=== PATIENT | female | born 1950 | race Hispanic/Latino ===

== ENCOUNTER 2017-12-25 10:45 | Outpatient (CLI) | payer MEDICARE ==
--- NOTE | 2017-12-25 12:48 | XRay Report ---
CHEST TWO VIEWS: 12/25/17 11:43 CLINICAL: Chest wall pain. COMPARISON: 06/09/14 FINDINGS: Normal heart and pulmonary vasculature. The lungs are normally expanded and clear.Mild exaggerated thoracic kyphosis but no spine fracture identified. Mild thoracic spondylosis. No rib fracture or rib lesion identified. IMPRESSION: No acute cardiopulmonary process and no rib fracture identified.
--- NOTE | 2017-12-25 12:53 | XRay Report ---
CHEST WITH LEFT RIB DETAIL 2 VIEWS: 12/25/17 10:45:00 CLINICAL: Chest wall pain. FINDINGS: No rib fracture or rib lesion.The lungs are normally expanded and clear. No pneumothorax. Normal heart and pulmonary vasculature the lungs are clear. Normal soft tissues. IMPRESSION: Negative with no rib fracture identified.
== END 2017-12-25 10:46 | disposition home or self-care (01) ==
LOC: SPVIMAG 10:45
PROVIDERS: ATTEND Internal Medicine
DX: R07.89 Other chest pain (principal); I10 Essential (primary) hypertension; I48.91 Unspecified atrial fibrillation
CPT/HCPCS: 71046

== ENCOUNTER 2021-07-29 09:53 | Emergency (ER) | payer MEDICARE ==
--- NOTE | 2021-07-29 10:07 | Emergency Department Report ---
ED Altered Mental Status HPI - General Stated Complaint: TIA Time Seen by Provider: 07/29/21 09:59 - History of Present Illness Initial Comments: 71-year-old female with a history of several TIAs in the past brought in by EMS with possible TIA/altered mental status that occurred this AM. According to EMS patient son called for help. Unsure what this patient baseline mental status is at this point. Patient's is very tangential not following any commands at this point. History is very very limited to what the EMS accounted for. No other modifying or associated factors reported. MD Complaint: altered mental status - Related Data Home Medications Medication Instructions Recorded Confirmed Last Taken Flecainide [Tambocor] 50 mg PO Q12H 07/31/15 11/22/15 Unknown Metoprolol Xl [Metoprolol 12.5 mg PO QDAY 07/31/15 11/22/15 Unknown SUCCINATE ER TAB] Warfarin [Coumadin] 7.5 mg PO QDAY 07/31/15 11/22/15 Unknown Warfarin [Coumadin] 10 mg PO QDAY 07/31/15 11/22/15 Unknown amLODIPine 10 mg PO DAILY 07/31/15 11/22/15 Unknown lisinopriL [Zestril TAB] 40 mg PO QDAY 07/31/15 11/22/15 Unknown Previous Rx's Medication Instructions Recorded Last Taken Type Ondansetron [Zofran Odt] 4 mg PO Q8HR PRN #20 tab.rapdis 11/22/15 Unknown Rx Potassium Chloride [K-Dur] 20 meq PO QDAY #3 tablet 11/22/15 Unknown Rx diazePAM TAB [Valium] 5 mg PO BID PRN #20 tablet 11/22/15 Unknown Rx Allergies Allergy/AdvReac Type Severity Reaction Status Date / Time Penicillins Allergy Hives Verified 07/29/21 13:15 ED Review of Systems ROS: Stated complaint: TIA Other details as noted in HPI Comment: All other systems reviewed and negative Musculoskeletal: other (Altered mental status) ED Past Medical Hx - Past Medical History Hx Hypertension: Yes Additional medical history: A Fib - Surgical History Additional Surgical History: tubaligation, sinus surgery - Social History Smoking Status: Never Smoker Substance Use Type: None - Medications Home Medications: Home Medications Medication Instructions Recorded Confirmed Last Taken Type Flecainide [Tambocor] 50 mg PO Q12H 07/31/15 11/22/15 Unknown History Metoprolol Xl [Metoprolol 12.5 mg PO QDAY 07/31/15 11/22/15 Unknown History SUCCINATE ER TAB] Warfarin [Coumadin] 7.5 mg PO QDAY 07/31/15 11/22/15 Unknown History Warfarin [Coumadin] 10 mg PO QDAY 07/31/15 11/22/15 Unknown History amLODIPine 10 mg PO DAILY 07/31/15 11/22/15 Unknown History lisinopriL [Zestril TAB] 40 mg PO QDAY 07/31/15 11/22/15 Unknown History Ondansetron [Zofran Odt] 4 mg PO Q8HR PRN #20 tab.rapdis 11/22/15 Unknown Rx Potassium Chloride [K-Dur] 20 meq PO QDAY #3 tablet 11/22/15 Unknown Rx diazePAM TAB [Valium] 5 mg PO BID PRN #20 tablet 11/22/15 Unknown Rx ED Physical Exam - General Limitations: Altered Mental Status General appearance: alert, in no apparent distress - Head Head exam: Present: atraumatic, normal inspection - Eye Eye exam: Present: normal appearance Pupils: Present: normal accommodation - ENT ENT exam: Present: normal exam, normal orophraynx, mucous membranes moist - Neck Neck exam: Present: normal inspection. Absent: tenderness - Respiratory Respiratory exam: Present: normal lung sounds bilaterally. Absent: respiratory distress, accessory muscle use - Cardiovascular Cardiovascular Exam: Present: regular rate, normal rhythm - GI/Abdominal GI/Abdominal exam: Present: soft, normal bowel sounds. Absent: distended, tenderness - Extremities Exam Extremities exam: Present: normal inspection, normal capillary refill. Absent: tenderness, pedal edema, joint swelling - Back Exam Back exam: Absent: tenderness - Neurological Exam Neurological exam: Present: alert (but tangential ), altered - Psychiatric Psychiatric exam: Present: normal affect - Skin Skin exam: Present: warm, normal color - Assessment Assessment Interval: Baseline (Unable to obtain because patient is very confused/alterred) ED Course - Reevaluation(s) Reevaluation #1: 07/29/21 10:07 Patient is brought in with altered mental status/likely TIA unsure what these patient baseline mentation is at this point--differential diagnosis could include but not limited to, undiagnosed dementia, CVA, TIA, urinary tract infection, pneumonia or other infectious process, so as a result we will go ahead and check routine labs that include CBC, CMP, urinalysis to rule out any electrolyte or infectious process. We will also get a CT scan of the brain immediately to rule out any intracranial abnormality. Chest x-ray and cardiac enzyme with initial EKG will also be obtained for likely cardiopulmonary etiology Reevaluation #2: 07/29/21 15:01 Patient labs reviewed and noted to be within normal limits. Patient daughter called and told the bedside nurse that this patient symptoms currently is no different from her baseline. She mentioned that somebody get excited when the patient called the EMS. Currently still waiting for urinalysis to be sure that patient does not have any urinary tract infection that can lead to delirium or altered mental status. Patient will be signed out to Dr. Alcocer to follow-up on the urinalysis if negative patient can be safely discharged home. - Lab Data Result diagrams: 07/29/21 10:43 07/29/21 10:43 Lab Results 07/29/21 07/29/21 07/29/21 Range/Units 10:43 10:43 10:43 WBC 6.4 (4.5-11.0) K/mm3 RBC 4.93 (3.65-5.03) M/mm3 Hgb 12.8 (10.1-14.3) gm/dl Hct 40.3 (30.3-42.9) % MCV 82 (79-97) fl MCH 26 L (28-32) pg MCHC 32 (30-34) % RDW 21.7 H (13.2-15.2) % Plt Count 283 (140-440) K/mm3 Lymph % (Auto) 11.9 L (13.4-35.0) % [place] % (Auto) 6.7 (0.0-7.3) % Eos % (Auto) 0.4 (0.0-4.3) % Baso % (Auto) 0.6 (0.0-1.8) % Lymph # (Auto) 0.8 L (1.2-5.4) K/mm3 [place] # (Auto) 0.4 (0.0-0.8) K/mm3 Eos # (Auto) 0.0 (0.0-0.4) K/mm3 Baso # (Auto) 0.0 (0.0-0.1) K/mm3 Seg Neutrophils % 80.4 H (40.0-70.0) % Seg Neutrophils # 5.1 (1.8-7.7) K/mm3 PT (12.2-14.9) Sec. INR (0.87-1.13) APTT (24.2-36.6) Sec. Sodium 138 (137-145) mmol/L Potassium 3.8 (3.6-5.0) mmol/L Chloride 100.9 (98-107) mmol/L Carbon Dioxide 25 (22-30) mmol/L Anion Gap 16 mmol/L BUN 12 (7-17) mg/dL Creatinine 0.6 (0.6-1.2) mg/dL Estimated GFR > 60 ml/min BUN/Creatinine Ratio 20 % Glucose 113 H (65-100) mg/dL Calcium 9.3 (8.4-10.2) mg/dL Total Bilirubin 0.90 (0.1-1.2) mg/dL AST 17 (5-40) units/L ALT 21 (7-56) units/L Alkaline Phosphatase 80 (35-129) units/L Troponin T < 0.010 (0.00-0.029) ng/mL NT-Pro-B Natriuret Pep 312.9 (0-900) pg/mL Total Protein 7.0 (6.3-8.2) g/dL Albumin 4.0 (3.9-5) g/dL Albumin/Globulin Ratio 1.3 % TSH 0.896 (0.270-4.200) mlU/mL 07/29/21 Range/Units 10:43 WBC (4.5-11.0) K/mm3 RBC (3.65-5.03) M/mm3 Hgb (10.1-14.3) gm/dl Hct (30.3-42.9) % MCV (79-97) fl MCH (28-32) pg MCHC (30-34) % RDW (13.2-15.2) % Plt Count (140-440) K/mm3 Lymph % (Auto) (13.4-35.0) % [place] % (Auto) (0.0-7.3) % Eos % (Auto) (0.0-4.3) % Baso % (Auto) (0.0-1.8) % Lymph # (Auto) (1.2-5.4) K/mm3 [place] # (Auto) (0.0-0.8) K/mm3 Eos # (Auto) (0.0-0.4) K/mm3 Baso # (Auto) (0.0-0.1) K/mm3 Seg Neutrophils % (40.0-70.0) % Seg Neutrophils # (1.8-7.7) K/mm3 PT 14.3 (12.2-14.9) Sec. INR 1.00 (0.87-1.13) APTT 29.6 (24.2-36.6) Sec. Sodium (137-145) mmol/L Potassium (3.6-5.0) mmol/L Chloride (98-107) mmol/L Carbon Dioxide (22-30) mmol/L Anion Gap mmol/L BUN (7-17) mg/dL Creatinine (0.6-1.2) mg/dL Estimated GFR ml/min BUN/Creatinine Ratio % Glucose (65-100) mg/dL Calcium (8.4-10.2) mg/dL Total Bilirubin (0.1-1.2) mg/dL AST (5-40) units/L ALT (7-56) units/L Alkaline Phosphatase (35-129) units/L Troponin T (0.00-0.029) ng/mL NT-Pro-B Natriuret Pep (0-900) pg/mL Total Protein (6.3-8.2) g/dL Albumin (3.9-5) g/dL Albumin/Globulin Ratio % TSH (0.270-4.200) mlU/mL Critical care attestation.: If time is entered above; I have spent that time in minutes in the direct care of this critically ill patient, excluding procedure time. ED Disposition Clinical Impression: Altered mental status Qualifiers: Altered mental status type: unspecified Qualified Code(s): R41.82 - Altered mental status, unspecified Disposition: 30 STILL A PATIENT Is pt being admited?: No Does the pt Need Aspirin: No Condition: Stable Additional Instructions: Increase your daily fluids to help your hydration Call and schedule follow-up with your primary doctor in the next 3 to 5 days for progress Please do not hesitate to call or return to emergency room if your symptoms worsen Time of Disposition: 15:03 (Pt signed to Dr Alcocer while waiting for UA)
--- NOTE | 2021-07-29 10:49 | Cat Scan Report ---
CT head/brain wo con INDICATION / CLINICAL INFORMATION: 71 years Female; AMS/TIA. TECHNIQUE: Routine CT head without contrast. All CT scans at this location are performed using CT dos e reduction for ALARA by means of automated exposure control. COMPARISON: None. FINDINGS: BRAIN / INTRACRANIAL CONTENTS: The patient is status post left craniotomy with collection underlying the craniotomy flap which is likely on a post operative basis measuring 3 mm transversely at. There i s notable heterogeneous signal within the left temporal lobe and correlation be needed regarding resi dual underlying lesion. There is also prominent edema within the adjacent to cerebral segments partic ularly extending within the left parietal region. There is notable mass effect with sulcal effacement as well as 7 mm of midline shift toward the right. There is associated subfalcine herniation. There is notable white matter disease within the right cerebral hemisphere most consistent with micro vascular angiopathy. Is mild relative prominence of the right lateral ventricle this single exam and continued follow-up would be recommended to exclude developing hydrocephalus. There appear to be post op changes within the left cerebral hemisphere as noted above. Otherwise, there is no clear CT eviden ce of acute hemorrhage. ORBITS: No significant abnormality of visualized orbits. SINUSES / MASTOIDS: There is scattered opacification within the ethmoid air cells. There is mild to m oderate air-fluid level along the posterior right sphenoid sinus. CRANIOCERVICAL JUNCTION: No significant abnormality. ADDITIONAL FINDINGS: None. IMPRESSION: 1. There is left-sided craniotomy with extensive heterogeneous attenuation and edema involving the le ft cerebral hemisphere resulting in mass effect as detailed above; correlation be needed, particularl y regarding any recent outside exams. Signer Name: Mauro Camilo MD Signed: 07/29/2021 10:45 AM Workstation Name: [id number]
--- NOTE | 2021-07-29 11:05 | XRay Report ---
CHEST 1 VIEW 07/29/2021 10:42 AM INDICATION / CLINICAL INFORMATION: AMS. COMPARISON: 12/25/17 FINDINGS: SUPPORT DEVICES: None. HEART / MEDIASTINUM: No significant abnormality. LUNGS / PLEURA: No significant pulmonary or pleural abnormality. No pneumothorax. ADDITIONAL FINDINGS: No significant additional findings. IMPRESSION: 1. No acute findings. Signer Name: Zachery Gottlieb Jr, MD Signed: 07/29/2021 11:00 AM Workstation Name: [id number]
[2021-07-29 11:20] LABS: Basophils % (Auto) 0.6 % (0.0-1.8); Eosinophils % (Auto) 0.4 % (0.0-4.3); Hematocrit 40.3 % (30.3-42.9); Hemoglobin 12.8 gm/dl (10.1-14.3); Lymphocytes # (Auto) 0.8 K/mm3 (1.2-5.4); Lymphocytes % (Auto) 11.9 % (13.4-35.0); Mean Corpuscular HGB Conc 32 % (30-34); Mean Corpuscular Volume 82 fl (79-97); Monocytes # (Auto) 0.4 K/mm3 (0.0-0.8); Monocytes % (Auto) 6.7 % (0.0-7.3); Platelet Count 283 K/mm3 (140-440); Red Blood Count 4.93 M/mm3 (3.65-5.03)
[2021-07-29 11:30] LABS: Partial Thromboplastin Time 29.6 Sec. (24.2-36.6)
[2021-07-29 11:44] LABS: Alanine Aminotransferase 21 units/L (7-56); Blood Urea Nitrogen 12 mg/dL (7-17); Calcium 9.3 mg/dL (8.4-10.2); Hemolysis Index 5
[2021-07-29 11:47] LABS: Red Cell Distribution Width 21.7 % (13.2-15.2)
[2021-07-29] MEDS ORDERED: SODIUM CHLORIDE 0.9% 1000 ML 1,000 ML IV ONE ×2 (11:50→12:51)
[2021-07-29 11:56] LABS: BUN/Creatinine Ratio 20
[2021-07-29 17:40] LABS: Bilirubin,Urine NEG (Negative); Blood,Urine MOD (Negative); Color,Urine Straw (Yellow); Mucus,Urine FEW /HPF; Protein,Urine <15 mg/dL mg/dL (Negative); Urobilinogen,Urine < 2.0 mg/dL (<2.0)
[2021-07-29 17:49] LABS: Amphetamine Screen,Urine Negative; Benzodiazepines Screen,Urine Negative; Cannabinoid Screen,Urine Negative; Cocaine Screen,Urine Negative; Methadone Screen,Urine Negative; Opiate Screen,Urine Negative
--- NOTE | 2021-07-29 18:43 | History and Physical Report ---
History of Present Illness Chief complaint: Confusion and Agitation History of present illness: 71 YO Female with Glioblastoma Multiforme, Vascular Dementia with Behavioral Disturbance, Cerebral Atherosclerosis, Paroxysmal Atrial Fib on therapeutic anticoagulation with Coumadin, HTN presents ED for evaluation. Patient is confused with diminished cognition and significant agitation at the time my evaluation is unable to provide history. Patient history provided by EMS staff, ED staff, as well as the patient's son who was at bedside during exam for interview. Patient son states that the patient has experienced increasing confusion and agitation and progressive weakness over the past 3 weeks with persistent and worsening symptoms over the same timeframe. Son states that the patient is currently bedbound, nonambulatory and requires 6/6 assistance with activities of daily living. Patient is a palliative performance score 30%. Patient has experienced diminished oral intake and is unable to recognize family members. EMS was notified and upon arrival the patient was found to be in distress and subsequently transported to [facility] for further care and evaluation of the aforementioned symptoms. The patient was seen and evaluated in the emergency department. All lab and imaging studies reviewed. Patient found to have cerebral edema secondary to glioblastoma multiforme, severe agitation, and encephalopathy. Patient found to have poor prognosis. No reports of fever, chills, chest pain, palpitation, adductive cough, skin rash and recent contact, known exposure to COVID-19. No prior admission for review. All medication listed at time of admission has been reconciled. Advanced care planning conduc marvin in ED. Past History Past Medical History: atrial fib, hypertension Past Surgical History: Other (Tubal ligation, craniotomy) Social history: , lives with family Family history: hypertension Medications and Allergies Allergies Allergy/AdvReac Type Severity Reaction Status Date / Time Penicillins Allergy Hives Verified 07/29/21 13:15 Home Medications Medication Instructions Recorded Confirmed Last Taken Type Flecainide [Tambocor] 50 mg PO Q12H 07/31/15 11/22/15 Unknown History Metoprolol Xl [Metoprolol 12.5 mg PO QDAY 07/31/15 11/22/15 Unknown History SUCCINATE ER TAB] Warfarin [Coumadin] 7.5 mg PO QDAY 07/31/15 11/22/15 Unknown History Warfarin [Coumadin] 10 mg PO QDAY 07/31/15 11/22/15 Unknown History amLODIPine 10 mg PO DAILY 07/31/15 11/22/15 Unknown History lisinopriL [Zestril TAB] 40 mg PO QDAY 07/31/15 11/22/15 Unknown History Ondansetron [Zofran Odt] 4 mg PO Q8HR PRN #20 tab.rapdis 11/22/15 Unknown Rx Potassium Chloride [K-Dur] 20 meq PO QDAY #3 tablet 11/22/15 Unknown Rx diazePAM TAB [Valium] 5 mg PO BID PRN #20 tablet 11/22/15 Unknown Rx Review of Systems ROS unobtainable: due to mental status Exam - Constitutional General appearance: Present: severe distress - EENT Eyes: Present: PERRL ENT: hearing intact, clear oral mucosa, hearing decreased - Neck Neck: Present: supple, normal ROM - Respiratory Respiratory: bilateral: CTA - Cardiovascular Heart Sounds: Present: S1 & S2. Absent: rub, click - Extremities Extremities: pulses symmetrical, No edema Peripheral Pulses: within normal limits - Abdominal General gastrointestinal: Present: soft, non-tender, non-distended, normal bowel sounds Female genitourinary: Present: normal - Integumentary Integumentary: Present: clear, dry, clammy - Musculoskeletal Musculoskeletal: generalized weakness - Psychiatric Psychiatric: no appropriate mood/affect, no intact judgment & insight, no memory intact, no cooperative, agitated - Neurologic Neurologic: moves all extremities, no gait normal HEART Score - HEART Score Troponin: Troponin T < 0.010 ng/mL (0.00-0.029) 07/29/21 10:43 Results - Labs CBC & Chem 7: 07/29/21 10:43 07/29/21 10:43 Labs: Abnormal lab results 07/29/21 07/29/21 Range/Units 10:43 10:43 MCH 26 L (28-32) pg RDW 21.7 H (13.2-15.2) % Lymph % (Auto) 11.9 L (13.4-35.0) % Lymph # (Auto) 0.8 L (1.2-5.4) K/mm3 Seg Neutrophils % 80.4 H (40.0-70.0) % Glucose 113 H (65-100) mg/dL Assessment and Plan - Patient Problems (1) Glioblastoma multiforme Current Visit: Yes Status: Acute Plan to address problem: CT scan head, neuro check, seizure precaution, aspiration precaution, fall precautions, supportive care. Patient found to have poor prognosis. Patient prognosis discussed with the patient son who elects to have patient discharged home with home hospice care. Home hospice team notified. (2) Paroxysmal atrial fibrillation Current Visit: Yes Status: Acute Plan to address problem: Supportive care, patient unable to comply with therapeutic anticoagulation at this time. Risk benefits discussed. Patient family elects to discontinue therapeutic anticoagulation and initiate comfort care measures. (3) Vascular dementia with behavioral disturbance Current Visit: Yes Status: Acute Plan to address problem: Verbal prompting, verbal redirection, benzodiazepine therapy as clinically indicated. (4) Cerebral atherosclerosis Current Visit: Yes Status: Acute Plan to address problem: Risk factor reduction, supportive care. (5) Debility Current Visit: No Status: Acute Plan to address problem: Patient is currently bedbound, follow-up cautions, bed alarm. (6) Advance care planning Current Visit: Yes Status: Acute Plan to address problem: Disease education done, care plan discussed, diagnosis discussed, prognosis discussed, patient is full code at this time. Patient family informed of patient's poor prognosis. Patient family elects to initiate home hospice care. Home hospice care team notified. Patient family acknowledged understanding and agreement with care plan, +30 minutes. (7) Preventative health care Current Visit: Yes Status: Acute Plan to address problem: Patient family counseled regarding home safety, supportive care. Risk factor reduction. And end-of-life care. +30 minutes.
[2021-07-29] MEDS ORDERED: LORazepam 2 MG/ML VIAL IV ONE ×2 (18:55→21:04)
[2021-07-29] MEDS ORDERED: MORPHINE 2 MG/1 ML INJ IV ONE ×2 (18:55→21:04)
--- NOTE | 2021-07-29 20:01 | Procedure Note ---
Date of procedure: 07/29/21 Pre-op diagnosis: Glioblastoma multiforme Post-op diagnosis: same Procedure: Right femoral vein triple-lumen catheter placement under ultrasound guidance The patient was prepped and draped in the usual sterile fashion. A timeout was taken with the patient's nurse at bedside to verify the correct patient, the correct procedure, and correct operative site. Local anesthesia obtained with 1% lidocaine. The ultrasound was utilized to localize the right femoral vein without difficulty. The Seldinger technique was utilized under ultrasound guidance to access the right femoral vein with a seeker needle. A guidewire was then advanced via the seeker needle into the right femoral vein and the seeker needle subsequently removed. A scalpel was used to incise the skin at the insertion site. A dilator was then placed over the guidewire into the right f emoral vein without difficulty and subsequently removed. A preflush triple- lumen catheter was then advanced into the right femoral vein without difficulty. All 3 ports flush and draw with ease. The triple-lumen catheter was sutured in place with 30 silk suture. Estimated blood loss minimal. Complications none. Surgeon: MANAV CAVAZOS Estimated blood loss: minimal Pathology: none Condition: stable Disposition: same day
[2021-07-30] MEDS ORDERED: LORazepam 2 MG/ML VIAL IV ONE (04:45)
[2021-07-30] MEDS ORDERED: MORPHINE 2 MG/1 ML INJ IV ONE (05:00)
[2021-07-30] MEDS ORDERED: MORPHINE 4 MG/1 ML INJ IV ONE (08:00)
[2021-07-30 15:52] VITALS: BP 130/76
== END 2021-07-30 16:10 | disposition still patient (30) ==
LOC: ED 09:53
DX: R41.82 Altered mental status, unspecified (principal); I10 Essential (primary) hypertension; Z88.0 Allergy status to penicillin; Z79.899 Other long term (current) drug therapy
CPT/HCPCS: 36415; 70450; 71045; 80053; 80307; 81001; 83880; 84443; 84484; 85025; 85610; 85730; 93005; 96361; 96374; 96375; 96376; 99284; J2060; J2270; J7030